=== PATIENT | male | born 1970 | race Two or more races ===

== ENCOUNTER 2021-09-27 02:52 | Emergency (ER) | payer MEDICARE, OTHER ==
[~2021-09-27] VITALS: Ht 167.6 cm; Wt 72.6 kg
[2021-09-27] MEDS ORDERED: predniSONE 50 MG TABLET PO ONE (03:30)
[2021-09-27] MEDS ORDERED: GUAIFENESIN/D-METHORPHAN HB 5 ML UDC PO ONE (03:30)
--- NOTE | 2021-09-27 03:45 | NUR ---
BIB BY SELF C/O PERSISTENT COUGHING. PT ALERT ORIENTED X4 RR EVEN UNLABORED NO SOB NOTED. PT CONNECTED TO CARDIAC AND POX MONITOR.
[2021-09-27] MEDS ORDERED: predniSONE 20 MG TABLET ONE (03:56)
[2021-09-27] MEDS ORDERED: GUAIFENESIN/D-METHORPHAN HB 5 ML UDC ONE (03:56)
[2021-09-27] MEDS ORDERED: BENZ-13 PO (04:37)
[2021-09-27] MEDS ORDERED: GUAI1TBM19 PO (04:37)
--- NOTE | 2021-09-27 04:48 | NUR ---
MD ORDERED TO GIVE PT A BREATHING TREATMENT OF LIDOCAINE 1%. MD ORDERED TO GIVE 3ML VIA INHALATION. NOTED AND CARRIED OUT.
--- NOTE | 2021-09-27 05:30 | NUR ---
Patient discharged to home in stable condition. Written and verbal after care instructions given. Patient verbalizes understanding of instruction. Pt ambulatory with a steady gait
[2021-09-27 06:49] VITALS: BP 101/77
--- NOTE | 2021-09-27 06:51 | NUR ---
Radha mcdonald in [facility] - 09/27/21 at 0652 by CORY Patient discharged to home in stable condition. RX, Written and verbal after care instructions given. Patient verbalizes understanding of instruction.
== END 2021-09-27 05:30 | disposition home or self-care (01) ==
LOC: ER 02:56
DX: R05.9 Cough, unspecified (principal); Z79.899 Other long term (current) drug therapy
CPT/HCPCS: 99283; J7512